=== PATIENT | female | born 1995 | race Caucasian/White ===

== ENCOUNTER 2018-01-29 16:25 | Emergency (ER) | payer OTHER ==
[~2018-01-29] VITALS: Ht 175.3 cm; Wt 82.5 kg
[2018-01-29 16:30] VITALS: TEMP 37.5; Ht 175.3 cm; Wt 82.5 kg
[2018-01-29] MEDS ORDERED: ONDANSETRON INJ 2 MG/ML 2 ML VIAL IV PRN (16:45)
[2018-01-29] MEDS ORDERED: SODIUM CHLORIDE 0.9% 1000ML 1,000 ML IV ONE (16:45)
--- NOTE | 2018-01-29 16:48 | EMERGENCY ROOM VISIT NOTE ---
History First contact with patient: 16:34 Chief Complaint: ABDOMINAL PAIN Stated Complaint: STOMACH PAIN,NAUSEA Nursing Triage Summary: pt reports abd pain started 1 week ago was vomiting was fine while in [place] during night woke with pain on thursday morning felt nauseated. vomitied thursday night. lower mid abd diarrhea on thursday and thursday History of Present Illness The patient is a 22 year old female who presents to the Emergency Room with complaints of abdominal pain that has been intermittent for approximately the last 2 weeks. She describes it as a severe dull ache. It started in the mid upper abdomen. It has now moved to below her bellybutton. She has also felt slightly feverish with headaches. She has experienced several episodes of vomiting. She also had a few episodes of diarrhea earlier this week. She denies any sick contacts. No urinary symptoms. Review of Systems 10 system review performed and negative unless noted in HPI or below Past Medical/Surgical History Otherwise healthy Status post tonsillectomy Social History Smoking Status: Never Smoker Alcohol Use: occasionally Occupation Status: [email or web address] Current/Historical Medications Scheduled PRN Promethazine Hcl (Phenergan), 25 MG PO Q6H PRN for Nausea Miscellaneous Medications Etonogestrel (Nexplanon) Physical Exam Vital Signs Date Time Temp Pulse Resp B/P (MAP) Pulse Ox O2 Delivery O2 Flow Rate FiO2 01/29/18 20:17 65 16 135/79 98 01/29/18 18:30 67 18 112/65 98 Room Air 01/29/18 16:30 37.5 78 18 143/85 99 Room Air Physical Exam VITALS: Vitals are noted on the nurse's note and reviewed by myself. Vital signs stable. GENERAL: 22-year-old female, in no acute distress, nondiaphoretic, well- developed well-nourished. SKIN: The skin was without rashes, erythema, edema, or bruising. HEAD: Normocephalic atraumatic. MOUTH: Mucous membranes slightly dry NECK: Supple without nuchal rigidity. No lymphadenopathy. Cervical spine is nontender. No JVD. HEART: Regular rate and rhythm without murmurs gallops or rubs. LUNGS: Clear to auscultation bilaterally without wheezes, rales or rhonchi. No accessory muscle use. ABDOMEN: Bowel sounds present, but hypoactive. Tenderness to palpation in the suprapubic and right lower quadrant. No guarding or rebound tenderness. Negative heel tap. MUSCULOSKELETAL: No muscle atrophy, erythema, or edema noted. Strength 5/5 throughout. NEURO: Patient was alert and oriented to person place and time. Normal sensation to touch. No focal neurological deficits. Medical Decision & Procedures ER Provider Diagnostic Interpretation: ct abd/pelvis IMPRESSION: No significant abnormality identified within the abdomen or pelvis. Normal appendix. The above report was generated using voice recognition software. It may contain grammatical, syntax or spelling errors. Electronically signed by: Eben Cohn M.D. 01/29/2018 7:32 PM Dictated Date/Time: 01/29/2018 7:28 PM The status of this report is Signed. Draft = Not yet reviewed or approved by Radiologist. Signed = Reviewed and approved by Radiologist. Laboratory Results 01/29/18 17:00 Red Blood Count 4.93, Mean Corpuscular Volume 87.4, Mean Corpuscular Hemoglobin 29.6, Mean Corpuscular Hemoglobin Concent 33.9, Mean Platelet Volume 10.2, Neutrophils (%) (Auto) 65.5, Lymphocytes (%) (Auto) 27.4, Monocytes (%) (Auto) 6.5, Eosinophils (%) (Auto) 0.0, Basophils (%) (Auto) 0.4, Neutrophils # (Auto) 6.80, Lymphocytes # (Auto) 2.85, Monocytes # (Auto) 0.68, Eosinophils # (Auto) 0.00, Basophils # (Auto) 0.04 01/29/18 17:00 Test 01/29/18 16:55 01/29/18 17:00 Urine Color YELLOW Urine Appearance CLEAR (CLEAR) Urine pH 7.0 (4.5-7.5) Urine Specific [place] 1.015 (1.000-1.030) Urine Protein NEG (NEG) Urine Glucose (UA) NEG (NEG) Urine Ketones NEG (NEG) Urine Occult Blood NEG (NEG) Urine Nitrite NEG (NEG) Urine Bilirubin NEG (NEG) Urine Urobilinogen NEG (NEG) Urine Leukocyte Esterase NEG (NEG) Urine Test NEG (NEG) White Blood Count 10.39 K/uL (4.8-10.8) Red Blood Count 4.93 M/uL (4.2-5.4) Hemoglobin 14.6 g/dL (12.0-16.0) Hematocrit 43.1 % (37-47) Mean Corpuscular Volume 87.4 fL (80-100) Mean Corpuscular Hemoglobin 29.6 pg (25-34) Mean Corpuscular Hemoglobin Concent 33.9 g/dl (32-36) Platelet Count 234 K/uL (130-400) Mean Platelet Volume 10.2 fL (7.4-10.4) Neutrophils (%) (Auto) 65.5 % Lymphocytes (%) (Auto) 27.4 % Monocytes (%) (Auto) 6.5 % Eosinophils (%) (Auto) 0.0 % Basophils (%) (Auto) 0.4 % Neutrophils # (Auto) 6.80 K/uL (1.4-6.5) Lymphocytes # (Auto) 2.85 K/uL (1.2-3.4) Monocytes # (Auto) 0.68 K/uL (0.11-0.59) Eosinophils # (Auto) 0.00 K/uL (0-0.5) Basophils # (Auto) 0.04 K/uL (0-0.2) RDW Standard Deviation 42.0 fL (36.4-46.3) RDW Coefficient of Variation 13.2 % (11.5-14.5) Immature Granulocyte % (Auto) 0.2 % Immature Granulocyte # (Auto) 0.02 K/uL (0.00-0.02) Anion Gap 7.0 mmol/L (3-11) Est Creatinine Clear Calc Drug Dose 138.1 ml/min Estimated GFR () 134.2 Estimated GFR (Non- 115.8 BUN/Creatinine Ratio 8.5 (10-20) Calcium Level 9.4 mg/dl (8.5-10.1) Total Bilirubin 0.5 mg/dl (0.2-1) Aspartate Amino Transf (AST/SGOT) 26 U/L (15-37) Alanine Aminotransferase (ALT/SGPT) 44 U/L (12-78) Alkaline Phosphatase 61 U/L (45-117) Total Protein 7.2 gm/dl (6.4-8.2) Albumin 3.9 gm/dl (3.4-5.0) Globulin 3.3 gm/dl (2.5-4.0) Albumin/Globulin Ratio 1.2 (0.9-2) Lipase 173 U/L (73-393) Medications Administered Medications (Trade) Dose Ordered Sig/Shari Route Start Time Stop Time Status Last Admin Dose Admin Sodium Chloride 1,000 ml @ 999 mls/hr Q1H1M ONCE IV 01/29/18 16:45 18 17:45 DC 01/29/18 17:06 999 MLS/HR Ondansetron HCl (Zofran Inj) 4 mg Q2H PRN IV 01/29/18 16:45 01/29/18 20:41 DC 01/29/18 17:07 4 MG Prom[facility] PO 01/29/18 20:00 01/29/18 20:01 DC 01/29/18 20:15 1 HOMEPACK ED Course Patient was seen and examined Vital signs including blood pressure were reviewed medications list was verified with patient Labs were obtained, and a saline lock was established The patient was medicated with Zofran and hydrated with 1 L of normal saline Imaging was performed and reviewed The findings were discussed with my supervising physician who is in agreement with my plan. The patient was reassessed and resting comfortably. Her nausea was slightly better. We discussed the results of her workup. She voiced understanding. She is comfortable being discharged home. The patient was given a home pack of Phenergan I reviewed discharge instructions the patient. They voiced understanding and had no further questions. Medical Decision DIFFERENTIAL DIAGNOSIS: Gastroenteritis, Hepatitis, cholecystitis, cholangitis, biliary colic, pancreatitis, appendicitis, inguinal hernia, nephrolithiasis, inflammatory bowel disease, mesenteric adenitis, peptic ulcer disease, GERD, gastritis, pancreatitis,, bowel obstruction, splenic infarct, diverticulitis, mesenteric ischemia, metabolic, peritonitis, among others. This patient is a 22-year-old female that presents to the emergency department with intermittent abdominal pain and vomiting over the last 2 weeks. On exam, she does have tenderness in the lower abdomen. She was borderline febrile. Her labs revealed borderline leukocytosis. A CT scan of the abdomen and pelvis were performed to rule out appendicitis in addition to any gallbladder pathology. There were no acute findings. Her urinalysis is clean. This is possibly a viral GI illness. The findings were discussed with the patient. I recommended that she follow a clear liquid diet for 24 hours. She was also given a home pack of Phenergan. I urged her to have close follow-up with [facility] for an abdominal recheck on Thursday. She was also instructed to return to the emergency department with any worsening symptoms. She was comfortable with this plan, and discharged in good condition This chart was completed in part utilizing [employer] Voice Recognition software. Attempts were made to minimize the grammatical errors, random word insertions, pronoun errors and incomplete sentences. Any formal questions or concerns about the content, text or information contained within the body of this dictation should be directly addressed to the provider for clarification. Medication Reconcilliation Current Medication List: was personally reviewed by me Blood Pressure Screening Patient's blood pressure: Elevated blood pressure Blood pressure disposition: Elevated BP felt to be situational Impression Primary Impression: Vomiting Additional Impression: Abdominal pain Departure Information Dispostion Home / Self-Care Condition GOOD Prescriptions Promethazine Hcl (Phenergan) 25 Mg Tab 25 MG PO Q6H Y for Nausea, #20 TAB Prov: Sera Baires, PADMINI 01/29/18 Referrals No Doctor, Assigned (PCP) Patient Instructions [facility] Additional Instructions You have been evaluated in the emergency department for vomiting and abdominal pain. A CAT scan did not show any abnormal findings. This is possibly a viral GI illness. Please follow a clear liquid diet for the next 24 hours-Gatorade, water, broth. If you are feeling better, please advance to a bland diet including crackers and dry toast. Please take Phenergan 1 tablet every 6 hours as needed for nausea Please follow-up with [facility] on Thursday for an abdomen recheck Do not hesitate to return to the emergency department with any new, worsening or concerning symptoms; especially, worsening abdominal pain, fever of 103F or greater or persistent vomiting Problem Qualifiers
[2018-01-29] MEDS ORDERED: ETON1IMP2 (17:15)
[2018-01-29 17:19] LABS: BASO % 0.4 %; BASO ABS # 0.04 K/uL (0-0.2); HEMATOCRIT 43.1 % (37-47); HEMOGLOBIN 14.6 g/dL (12.0-16.0); IG# 0.02 K/uL (0.00-0.02); LYMPH % 27.4 %; LYMPH ABS # 2.85 K/uL (1.2-3.4); MEAN CELL VOLUME 87.4 fL (80-100); MEAN CORPUSCULAR HEMOGLOBIN 29.6 pg (25-34); MEAN CORPUSCULAR HGB CONC 33.9 g/dl (32-36); MEAN PLATELET VOLUME 10.2 fL (7.4-10.4); MONO % 6.5 %; MONO ABS # 0.68 K/uL (0.11-0.59); NEUT % 65.5 %; PLATELET COUNT 234 K/uL (130-400); RED CELL DISTRIBUTION WIDTH CV 13.2 % (11.5-14.5); WHITE BLOOD COUNT 10.39 K/uL (4.8-10.8)
[2018-01-29 17:38] LABS: ALBUMIN 3.9 gm/dl (3.4-5.0); CALCIUM 9.4 mg/dl (8.5-10.1); CREATININE 0.74 mg/dl (0.60-1.20); POTASSIUM 3.7 mmol/L (3.5-5.1)
[2018-01-29 17:40] LABS: TOTAL PROTEIN 7.2 gm/dl (6.4-8.2)
[2018-01-29] MEDS ORDERED: OPTIRAY 320 IV PRN (19:15)
--- NOTE | 2018-01-29 19:34 | DIAGNOSTIC IMAGING REPORT ---
ABD/PELVIS IV AND ORAL CONT CT DOSE: 402.12 mGy.cm HISTORY: Pain. Fever. lower abd pain n/v fever ? usama vs appy TECHNIQUE: Multiaxial CT images of the abdomen and pelvis were performed following the use of intravenous and oral contrast. A dose lowering technique was utilized adhering to the principles of ALARA. COMPARISON STUDY: None. FINDINGS: The lung bases are clear. The liver, spleen, gallbladder, pancreas, kidneys, and adrenal glands are within normal limits. No bowel wall thickening or obstruction. The pelvic organs are unremarkable. No suspicious lytic or blastic osseous lesions. Normal appendix. IMPRESSION: No significant abnormality identified within the abdomen or pelvis. Normal appendix. The above report was generated using voice recognition software. It may contain grammatical, syntax or spelling errors. Electronically signed by: Eben Cohn M.D. 01/29/2018 7:32 PM Dictated Date/Time: 01/29/2018 7:28 PM
[2018-01-29] MEDS ORDERED: PHENERGAN 25MG HOMEPACK PO ONE (20:00)
[2018-01-29] MEDS ORDERED: PROM25TA9 PO (20:02)
[2018-01-29 20:17] VITALS: BP 135/79; PULSE 65; O2SAT 98
== END 2018-01-29 20:18 | disposition home or self-care (01) ==
LOC: C.EDB 16:27 → C.EDA 20:18
DX: R11.2 Nausea with vomiting, unspecified (principal); Z79.3 Long term (current) use of hormonal contraceptives

== ENCOUNTER 2018-02-04 20:07 | Emergency (ER) | payer OTHER ==
[~2018-02-04] VITALS: Ht 175.3 cm; Wt 83.8 kg
[~2018-02-04 20:07] MED LIST: ETON1IMP2 ID; PROM25TA9 PO
[2018-02-04 20:10] VITALS: TEMP 36.4; Ht 175.3 cm; Wt 83.8 kg
[2018-02-04] MEDS ORDERED: FAMO40TA6 PO (20:30)
[2018-02-04] MEDS ORDERED: ONDA4TAB46 PO (20:30)
[2018-02-04] MEDS ORDERED: NAPR1TAB9 PO (20:31)
[2018-02-04] MEDS ORDERED: HYDROmorphone INJ 1 MG/ML SYR IV STA (21:02)
[2018-02-04] MEDS ORDERED: SODIUM CHLORIDE 0.9% 1000ML 1,000 ML IV STA (21:02)
[2018-02-04] MEDS ORDERED: METOCLOPRAMIDE HCL INJ 5 MG/ML 2 ML VIAL IV STA (21:02)
[2018-02-04] MEDS ORDERED: OPTIRAY 320 IV PRN (21:30)
--- NOTE | 2018-02-04 21:43 | DIAGNOSTIC IMAGING REPORT ---
KUB CLINICAL HISTORY: Pt c/o diffuse abd pain pain COMPARISON STUDY: No previous studies for comparison. FINDINGS: The soft tissues, psoas shadows, renal outlines and intestinal gas pattern appear normal. There is no evidence for bowel obstruction. No abnormal abdominal calcifications are seen. IMPRESSION: Normal study. The above report was generated using voice recognition software. It may contain grammatical, syntax or spelling errors. Electronically signed by: Eben Cohn M.D. 02/04/2018 9:42 PM Dictated Date/Time: 02/04/2018 9:41 PM
[2018-02-04 21:56] LABS: BASO % 0.4 %; BASO ABS # 0.05 K/uL (0-0.2); EOS % 4.2 %; EOS ABS # 0.56 K/uL (0-0.5); HEMOGLOBIN 14.4 g/dL (12.0-16.0); IG# 0.04 K/uL (0.00-0.02); LYMPH % 16.9 %; LYMPH ABS # 2.25 K/uL (1.2-3.4); MEAN CELL VOLUME 87.6 fL (80-100); MEAN CORPUSCULAR HEMOGLOBIN 29.3 pg (25-34); MEAN CORPUSCULAR HGB CONC 33.5 g/dl (32-36); MONO % 8.2 %; MONO ABS # 1.09 K/uL (0.11-0.59); NEUT ABS # 9.36 K/uL (1.4-6.5); PLATELET COUNT 232 K/uL (130-400); RED CELL DISTRIBUTION WIDTH CV 13.3 % (11.5-14.5); RED CELL DISTRIBUTION WIDTH SD 42.4 fL (36.4-46.3); WHITE BLOOD COUNT 13.35 K/uL (4.8-10.8)
[2018-02-04 22:07] LABS: ALBUMIN 4.2 gm/dl (3.4-5.0); ALT/SGPT 39 U/L (12-78); BLOOD UREA NITROGEN 6 mg/dl (7-18); CALCIUM 9.5 mg/dl (8.5-10.1); CARBON DIOXIDE 25 mmol/L (21-32); CREATININE 0.82 mg/dl (0.60-1.20); GLUCOSE 82 mg/dl (70-99); LIPASE 213 U/L (73-393); POTASSIUM 3.4 mmol/L (3.5-5.1); SODIUM 139 mmol/L (136-145)
[2018-02-04 22:10] LABS: ALKALINE PHOSPHATASE 61 U/L (45-117); AST/SGOT 30 U/L (15-37); TOTAL PROTEIN 7.2 gm/dl (6.4-8.2)
--- NOTE | 2018-02-04 22:49 | EMERGENCY ROOM VISIT NOTE ---
History Report prepared by Ash: Josseline Toro Under the Supervision of: Dr. Supa Lott M.D. First contact with patient: 20:30 Chief Complaint: ABDOMINAL PAIN Stated Complaint: ABDOMINAL PAIN Nursing Triage Summary: Pt reports LUQ and lower abdominal pain that started 3 hours ago. Reports nausea, diarrhea, denies vomiting. History of Present Illness The patient is a 22 year old female who presents to the Emergency Room with complaints of sudden abdominal pain starting today. The patient states that 10 days ago she was awoken in the middle of the night with abdominal pain. She reports that she took 2 Aleve and went back to sleep. She states that she felt fine when she woke up, but after eating breakfast, the pain came back. She states that she then started to experience nausea all day and vomited that evening. She states that that night she went to Urgent Care who said nothing was wrong. She reports that she came home and vomited again. She states that she started to experience diarrhea that evening as well. The patient states that she went to [facility] the next morning and they were unsure of what it was as well. She states that they started her on Promethazine 25 mg for IBS, but denies them working. She reports that the rest of the week she had decreased abdominal pain, but still had constant nausea. She denies eating much food last week. The patient states that she went back to [facility] on Thursday and they sent her here because they were worried about her appendix. She states that her CT scan came back negative. The patient states that she went home the next morning to [place] and had I-Hop. She reports that she had eggs, toast, and hash browns. She states that she then vomited twice on the way home and had diarrhea again. The patient states that she was slowly getting better while at home and went and saw a GI specialist who didn't know what was wrong either. She states that because she was feeling lightheaded with headaches the GI specialist recommended getting a head CT. She states that he started her on a generic version of Zofran. The patient states that since then she has had few cases of diarrhea. She reports that she came back to school this morning even though she was still nauseous. She states that she went to [employer] today and had iced coffee with a bagel. She states that right after she felt bloated and nauseous. She reports that she went to club softball practice to do some lifting and immediately started having severe abdominal pain. She states that this is the worst it has ever been and is now in a new area compared to before. She reports that today it is in the center of her lower abdomen and left upper side. The patient states that the pain has since plateaued from it coming on and is worse with a deep breath. She reports that she took 2 Aleve 2.5 hours ago. The patient states that she does not move her bowels often. She notes that her LNMP was the 1st week of December and that it is normally for her due to the implant in her arm. She reports that she is sexually active and does drink normally, but hasn't recently except for one cider last night. The patient denies a history of abdominal surgery, the chance of retaining a tampon, unusual vaginal discharge, new sexual partners, urinary symptoms, use of marijuana, and knowing why she is shaking. The patient notes that she has a history of a tonsillectomy and mono in 2014. The patient did give me permission to speak with her parents. Source of History: patient Onset: today Position: abdomen Quality: other (bloating) Timing: other (sudden) Modifying Factors (Worsening): breathing Associated Symptoms: + nausea, + vomiting, + diarrhea, No urinary symptoms Note: The patient denies unusual vaginal discharge. Review of Systems See HPI for pertinent positives & negatives. A total of 10 systems reviewed and were otherwise negative. Past Medical & Surgical Medical Problems: (1) Asthma (2) Peritonsillar abscess Surgical Problems: (1) History of tonsillectomy Family History Hypertension Social History Smoking Status: Never Smoker Alcohol Use: occasionally Marital Status: single Housing Status: lives with roommate Occupation Status: [employer] student Current/Historical Medications Scheduled Etonogestrel (Nexplanon), ID UD Famotidine (Pepcid), 40 MG PO DAILY Naproxen (Aleve), 440 MG PO PRN UD Scheduled PRN Metoclopramide (Reglan), 10 MG PO Q6H PRN for Nausea Ondansetron Hcl (Zofran), 4 MG PO 6XDAY PRN for Nausea Oxycodone/Acetaminophen 5MG/325MG (Percocet 5MG/325MG), 1-2 TAB PO Q4H PRN for Pain Allergies Coded Allergies: No Known Allergies (Unverified , 01/29/18) Physical Exam Vital Signs Date Time Temp Pulse Resp B/P (MAP) Pulse Ox O2 Delivery O2 Flow Rate FiO2 02/05/18 03:10 100 18 125/75 99 Room Air 02/05/18 01:07 100 18 126/71 98 Room Air 02/04/18 23:17 118 18 135/71 98 Room Air 02/04/18 20:10 36.4 106 18 135/89 96 Room Air Physical Exam GENERAL: Awake, alert, well-appearing, in no acute distress HENT: Normocephalic, atraumatic. Oropharynx unremarkable. EYES: Normal conjunctiva. Sclera non-icteric. NECK: Supple. No nuchal rigidity. FROM. No JVD. RESPIRATORY: Clear to auscultation. CARDIAC: Regular rate, normal rhythm. Extremities warm and well perfused. Pulses equal. ABDOMEN: Soft, non-distended. LUQ tenderness to palpation. No rebound or guarding. No masses. PELVIC: Cottage cheese discharge present. Cultures taken. No chandelier sign. Cervix non friable. RECTAL: Deferred. MUSCULOSKELETAL: Chest examination reveals no tenderness. The back is symmetrical on inspection without obvious abnormality. There is no CVA tenderness to palpation. No joint edema. LOWER EXTREMITIES: Calves are equal size bilaterally and non-tender. No edema. No discoloration. NEURO: Normal sensorium. No sensory or motor deficits noted. SKIN: No rash or jaundice noted. Medical Decision & Procedures ER Provider Diagnostic Interpretation: Radiology results as stated below per my review and radiologist interpretation: CT ABDOMEN & PELVIS With Contrast: Compared to 01/29/18. No GI or urinary obstruction. Unremarkable appendix. Small amount of free pelvic fluid may be physiologic. Radiologist: Shon Cleveland MD Study ready at 00:24 and initial results transmitted at 01:03. US RENAL: Compared to CT of 01/29/18 Unremarkable kidneys. No hydronephrosis. Radiologist: Shon Cleveland MD Study ready at 23:22 and initial results transmitted at 23:41. US PELVIC/ENDOVAG: Essentially unremarkable pelvic ultrasound. Uterus and ovaries are within normal limits. Small amount of free pelvic fluid may be physiologic. Radiologist: Shon Cleveland MD Study ready at 23:22 and initial results transmitted at 23:42. KUB CLINICAL HISTORY: Pt c/o diffuse abd pain pain COMPARISON STUDY: No previous studies for comparison. FINDINGS: The soft tissues, psoas shadows, renal outlines and intestinal gas pattern appear normal. There is no evidence for bowel obstruction. No abnormal abdominal calcifications are seen. IMPRESSION: Normal study. The above report was generated using voice recognition software. It may contain grammatical, syntax or spelling errors. Electronically signed by: Eben Cohn M.D. 02/04/2018 9:42 PM Dictated Date/Time: 02/04/2018 9:41 PM Laboratory Results 02/04/18 21:25 Red Blood Count 4.91, Mean Corpuscular Volume 87.6, Mean Corpuscular Hemoglobin 29.3, Mean Corpuscular Hemoglobin Concent 33.5, Mean Platelet Volume 11.0, Neutrophils (%) (Auto) 70.0, Lymphocytes (%) (Auto) 16.9, Monocytes (%) (Auto) 8.2, Eosinophils (%) (Auto) 4.2, Basophils (%) (Auto) 0.4, Neutrophils # (Auto) 9.36, Lymphocytes # (Auto) 2.25, Monocytes # (Auto) 1.09, Eosinophils # (Auto) 0.56, Basophils # (Auto) 0.05 02/04/18 21:25 Test 02/04/18 21:25 02/04/18 21:40 02/05/18 02:00 White Blood Count 13.35 K/uL (4.8-10.8) Red Blood Count 4.91 M/uL (4.2-5.4) Hemoglobin 14.4 g/dL (12.0-16.0) Hematocrit 43.0 % (37-47) Mean Corpuscular Volume 87.6 fL (80-100) Mean Corpuscular Hemoglobin 29.3 pg (25-34) Mean Corpuscular Hemoglobin Concent 33.5 g/dl (32-36) Platelet Count 232 K/uL (130-400) Mean Platelet Volume 11.0 fL (7.4-10.4) Neutrophils (%) (Auto) 70.0 % Lymphocytes (%) (Auto) 16.9 % Monocytes (%) (Auto) 8.2 % Eosinophils (%) (Auto) 4.2 % Basophils (%) (Auto) 0.4 % Neutrophils # (Auto) 9.36 K/uL (1.4-6.5) Lymphocytes # (Auto) 2.25 K/uL (1.2-3.4) Monocytes # (Auto) 1.09 K/uL (0.11-0.59) Eosinophils # (Auto) 0.56 K/uL (0-0.5) Basophils # (Auto) 0.05 K/uL (0-0.2) RDW Standard Deviation 42.4 fL (36.4-46.3) RDW Coefficient of Variation 13.3 % (11.5-14.5) Immature Granulocyte % (Auto) 0.3 % Immature Granulocyte # (Auto) 0.04 K/uL (0.00-0.02) Anion Gap 6.0 mmol/L (3-11) Est Creatinine Clear Calc Drug Dose 125.5 ml/min Estimated GFR () 118.6 Estimated GFR (Non- 102.3 BUN/Creatinine Ratio 7.3 (10-20) Calcium Level 9.5 mg/dl (8.5-10.1) Total Bilirubin 0.2 mg/dl (0.2-1) Direct Bilirubin < 0.1 mg/dl (0-0.2) Aspartate Amino Transf (AST/SGOT) 30 U/L (15-37) Alanine Aminotransferase (ALT/SGPT) 39 U/L (12-78) Alkaline Phosphatase 61 U/L (45-117) Total Protein 7.2 gm/dl (6.4-8.2) Albumin 4.2 gm/dl (3.4-5.0) Lipase 213 U/L (73-393) Urine Color DK YELLOW Urine Appearance CLEAR (CLEAR) Urine pH 5.0 (4.5-7.5) Urine Specific [place] 1.027 (1.000-1.030) Urine Protein NEG (NEG) Urine Glucose (UA) NEG (NEG) Urine Ketones TRACE (NEG) Urine Occult Blood NEG (NEG) Urine Nitrite NEG (NEG) Urine Bilirubin NEG (NEG) Urine Urobilinogen NEG (NEG) Urine Leukocyte Esterase NEG (NEG) Urine Test NEG (NEG) Date/Time Source Procedure Growth Status 02/05/18 02:00 Cervix Swab Trichomonas Preparation - Final Complete Labs reviewed by ED physician. Medications Administered Medications (Trade) Dose Ordered Sig/Shari Route Start Time Stop Time Status Last Admin Dose Admin Sodium Chloride 1,000 ml @ 999 mls/hr Q1H1M STAT IV 02/04/18 21:02 02/04/18 22:02 DC 02/04/18 21:37 999 MLS/HR Hydromorphone HCl (Dilaudid Inj) 1 mg NOW STAT IV 02/04/18 21:02 02/04/18 21:08 DC 02/04/18 21:37 1 MG Metoclopramide HCl (Reglan Inj) 10 mg NOW STAT IV 02/04/18 21:02 02/04/18 21:08 DC 02/04/18 21:37 10 MG Ondansetron HCl (Zofran Inj) 4 mg NOW STAT IV 02/04/18 23:31 02/04/18 23:32 DC 02/04/18 23:37 4 MG Fluconazole (Diflucan Tab) 150 mg NOW STAT PO 02/05/18 02:01 02/05/18 02:05 DC 02/05/18 02:49 150 MG Metronidazole (Flagyl Tab) 500 mg NOW STAT PO 02/05/18 02:01 02/05/18 02:05 DC 02/05/18 02:45 500 MG Doxycycline Hyclate (Vibramycin Cap) 100 mg NOW STAT PO 02/05/18 02:01 02/05/18 02:05 DC 02/05/18 02:46 100 MG Oxycodone/ Acetaminophen (Percocet 5/ 325MG Home Pack) 1 homepack UD STAT PO 02/05/18 02:01 02/05/18 02:05 DC 02/05/18 02:50 1 HOMEPACK Magnesium Citrate (Citrate Of Magnesia Soln) 296 ml NOW STAT PO 02/05/18 02:01 02/05/18 02:05 DC 02/05/18 02:45 296 ML ED Course 2044: Past medical records reviewed. The patient was evaluated in room C2B. A complete history and physical examination was performed. 2: Ordered Reglan Inj 10 mg IV, Dilaudid Inj 1 mg IV, NSS 1000 ml @ 999 mls/ hr IV. 2330: I reevaluated the patient and she was vomiting. 2331: Ordered Zofran Inj 4 mg IV. 2344: I reevaluated the patient and she is doing better. 0143: I reevaluated the patient and performed a pelvic exam at this time. 0201: Ordered Magnesium Citrate 296 ml PO, Oxycodone/ Acetaminophen 1 homepack PO, Vibramycin Cap 100 mg PO, Flagyl Tab 500 mg PO, Diflucan Tab 150 mg PO. 0247: I reevaluated the patient and updated her on swabs. 0306: Upon reexamination the patient is resting comfortably. I discussed results and treatment plan with the patient. She verbalizes agreement and understanding. The patient is ready for discharge. Medical Decision Etiologies such as appendicitis, diverticulitis, PUD, biliary pathology, UTI, pancreatitis, obstruction, mesenteric ischemia, aortic pathology, infections, inflammatory bowel disease, renal colic, as well as others were entertained. This is a 22-year-old female who presents the emergency department complaining of abdominal pain as well as diarrhea that has been ongoing for the past 2 weeks. The patient's history was reviewed via speaker phone with her mother in a [id number] process was laid out as to her plan in the emergency department. We obtained a CBC renal profile liver profile along with a lipase. The patient does admit to being sexually active and therefore she was sent for a ultrasound of her pelvis to ensure that this is not a ruptured cyst or infection. She was also sent for an ultrasound of her kidneys which did not show any evidence of stone or hydronephrosis. She is not she has no evidence of urinary tract infection. White blood cell count is slightly elevated at 13 however this may be from vomiting today. The patient was seen gastroenterology at home. Using shared medical decision making with both the patient and her mother all of her laboratory information was reviewed along with the imaging studies of her KUB and ultrasound. I also noted that I felt that the patient was constipated at this point. Due to the elevation in the white blood cell count as well as the patient's pain the decision was made to rescan the patient. She did tolerate the oral contrast. Her CAT scan does not show any acute process however there was some pelvic fluid and therefore pelvic examination was obtained. I am suspecting as this patient's issues have been going on 2 weeks that she is actually suffering from constipation I recommended a magnesium citrate cleanout. She does have a whitish discharge for this she was given 1 dose of Diflucan. Stressed the need for follow-up with [facility] as well as a clear diet for the next 48 hours. The patient was also unable to provide a stool sample while she was in the emergency department. She was given pain medication as well as stool softeners. She was given a one-time dose of doxycycline as well as Flagyl however she was not continued on these as her did not show any evidence of clue cells. Medication Reconcilliation Current Medication List: was personally reviewed by me Blood Pressure Screening Patient's blood pressure: Normal blood pressure Blood pressure disposition: Did not require urgent referral Impression Primary Impression: Abdominal pain Additional Impressions: Vaginal discharge Constipation Scribe Attestation The scribe's documentation has been prepared under my direction and personally reviewed by me in its entirety. I confirm that the note above accurately reflects all work, treatment, procedures, and medical decision making performed by me. Departure Information Dispostion Home / Self-Care Prescriptions Metoclopramide (Reglan) 10 Mg Tab 10 MG PO Q6H Y for Nausea, #6 TAB Prov: Supa Lott MD 02/05/18 Oxycodone/Acetaminophen 5MG/325MG (PERCOCET 5MG/325MG) Tab 1-2 TAB PO Q4H Y for Pain, #14 TAB Prov: Supa Lott MD 02/05/18 Referrals [facility] (PCP) Forms HOME CARE DOCUMENTATION FORM, IMPORTANT VISIT INFORMATION Patient Instructions My [facility] Additional Instructions Take 1/2 bottle of Mag Citrate Repeat second half in six hours Clear liquid diet next 48 hours You received narcotic or benzodiazepene medication while in the emergency room today. This is an addictive medication that may cause drowziness as well as constipation. Do not drive, operate heavy machinery, or drink alcohol under the influence of this medication. Take 600 mg Ibuprofen every 6 hours Take Percocet for breakthrough pain Radiographs and CTs will be reread by a radiologist in the morning. Culture results are usually available in approx 48 hours You have been examined and treated today on an emergency basis only. This is not a substitute for, or an effort to provide, complete comprehensive medical care. It is impossible to recognize and treat all injuries or illnesses in a single emergency department visit. It is therefore important that you follow up closely with [facility]. Call as soon as possible for an appointment. Thank you for your time and consideration. I look forward to speaking with you again soon. Please don't hesitate to call us if you have any questions. [place] Problem Qualifiers Primary Impression: Abdominal pain Abdominal location: unspecified location Qualified Codes: R10.9 - Unspecified abdominal pain Additional Impressions: Constipation Constipation type: unspecified constipation type Qualified Codes: K59.00 - Constipation, unspecified
[2018-02-04] MEDS ORDERED: ONDANSETRON INJ 2 MG/ML 2 ML VIAL IV STA (23:31)
[2018-02-05] MEDS ORDERED: PERCOCET HOME PACK PO STA (02:01)
[2018-02-05] MEDS ORDERED: METRONIDAZOLE 250 MG TAB PO STA (02:01)
[2018-02-05] MEDS ORDERED: FLUCONAZOLE 100 MG TAB PO STA (02:01)
[2018-02-05] MEDS ORDERED: MAGNESIUM CITRATE 296 ML/BTL PO STA (02:01)
[2018-02-05] MEDS ORDERED: DOXYCYCLINE HYCLATE 100 MG CAP PO STA (02:01)
[2018-02-05] MEDS ORDERED: OXYC-57 PO (03:04)
[2018-02-05] MEDS ORDERED: METO-157 PO (03:04)
[2018-02-05 03:10] VITALS: BP 125/75; PULSE 100; O2SAT 99
--- NOTE | 2018-02-05 06:40 | DIAGNOSTIC IMAGING REPORT ---
PELVIC COMPLETE NON OB HISTORY: 22 years-old Female Pt c/o left sided abd pain acute left-sided abdominal pain COMPARISON: CT abdomen and pelvis of same day TECHNIQUE: Multiple real-time sonographic images of the deep pelvic structures were obtained transabdominally and transvaginally assessing grayscale appearance, color and spectral flow FINDINGS: TRANSABDOMINAL: Pelvic structures are subvisualized secondary to obscuring bowel gas. TRANSVAGINAL: Anteflexed uterus measures 5.9 x 2.6 x 3.4 cm and is unremarkable. No myometrial mass lesion identified. Endometrium is homogeneous, 3 mm. The right ovary measures 3.6 x 1.8 x 3.5 cm and is within normal limits with follicles, arterial inflow and venous outflow. No right adnexal mass lesions identified. The left ovary measures 3.0 x 1.6 x 2.7 cm and is also within normal limits with follicles, arterial inflow and venous outflow. No left adnexal mass lesions identified. Trace free pelvic fluid, likely physiologic. IMPRESSION: 1. Unremarkable sonographic appearance of the uterus, endometrium and bilateral ovaries. 2. Trace free pelvic fluid, likely physiologic. The above report was generated using voice recognition software. It may contain grammatical, syntax or spelling errors. Electronically signed by: Manny Cardoso M.D. 02/05/2018 6:39 AM Dictated Date/Time: 02/05/2018 6:36 AM
--- NOTE | 2018-02-05 06:44 | DIAGNOSTIC IMAGING REPORT ---
EXAMINATION: RENAL ULTRASOUND CLINICAL HISTORY: Left-sided pain COMPARISON STUDY: CT scan dated 01/29/2018 FINDINGS: The right kidney measures 10.0 cm. The left kidney measures 10.4 cm. There is no evidence of hydronephrosis. There are no renal masses. The bladder was not fully distended. Neither ureteral jet was visualized. IMPRESSION : No evidence of hydronephrosis. No renal masses identified. Electronically signed by: Gigi Stock M.D. 02/05/2018 6:42 AM Dictated Date/Time: 02/05/2018 6:41 AM
--- NOTE | 2018-02-05 06:48 | DIAGNOSTIC IMAGING REPORT ---
CT ABD/PELVIS IV AND ORAL CONT CLINICAL HISTORY: Diffuse abdominal pain COMPARISON STUDY: 01/29/2018 TECHNIQUE: Following the IV administration of 93 mL of Optiray-320, CT scan of the abdomen and pelvis was performed from the lung bases to the proximal femurs. Images are reviewed in the axial, sagittal, and coronal planes. IV contrast was administered without complication. A dose lowering technique was utilized adhering to the principles of ALARA. CT DOSE: 452.95 mGy.cm FINDINGS: Lower chest: The heart is normal in size and configuration, without pericardial effusion. The lung bases and pleural spaces are clear. Liver: The contrast-enhanced liver is normal in size, contour, and attenuation. There is no intrahepatic biliary ductal dilatation. The hepatic veins and portal veins are patent. Gallbladder: Unremarkable. Spleen: Normal in size and attenuation. Pancreas: Unremarkable. Adrenal glands: Unremarkable. Kidneys: There is symmetric renal cortical enhancement. The kidneys are normal in size without hydronephrosis. Bowel: There are no transition zones indicate bowel obstruction. There is no acute diverticulitis. The appendix appears normal. Peritoneum: No free air is visualized. There is trace free fluid within the pelvis, likely physiologic. Vasculature: The abdominal aorta is normal in course and caliber. Adenopathy: None. Pelvic viscera: The bladder, and pelvic viscera are unremarkable. Skeletal structures: No destructive osseous lesions are seen. IMPRESSION: 1. No acute intra-abdominal or pelvic findings 2. No evidence of bowel obstruction. No evidence of free air 3. Normal appendix 4. Trace free fluid within the pelvis likely physiologic Electronically signed by: Gigi Stock M.D. 02/05/2018 6:47 AM Dictated Date/Time: 02/05/2018 6:44 AM
== END 2018-02-05 03:16 | disposition home or self-care (01) ==
LOC: C.EDB 20:07 → C.EDC 02-05 03:16
DX: K59.00 Constipation, unspecified (principal); N89.8 Other specified noninflammatory disorders of vagina; D72.829 Elevated white blood cell count, unspecified; R11.2 Nausea with vomiting, unspecified; R19.7 Diarrhea, unspecified; J45.909 Unspecified asthma, uncomplicated; Z79.3 Long term (current) use of hormonal contraceptives; Z82.49 Family history of ischemic heart disease and other diseases of the circulatory system